=== PATIENT | female | born 1960 | race Caucasian/White ===

== ENCOUNTER 2018-09-06 20:50 | Emergency (ER) | payer BC ==
[~2018-09-06] VITALS: Ht 157.5 cm; Wt 53.6 kg
[2018-09-06] MEDS ORDERED: PANT20TA2 PO (20:57)
[2018-09-06] MEDS ORDERED: LEXA1TAB PO (20:57)
[2018-09-06] MEDS ORDERED: TIZA2CAP PO (22:28)
[2018-09-06] MEDS ORDERED: TRAM50TA2 PO (22:28)
[2018-09-06] MEDS ORDERED: traMADol 50 MG TAB PO ONE (22:30)
[2018-09-06 22:37] VITALS: BP 120/69
--- NOTE | 2018-09-07 08:17 | REP ---
Right humerus two views: There is a nondisplaced fracture at the surgical neck of the humerus. There is no dislocation. No calcifications or foreign bodies. No pleural Electronically Signed by Sudheer Ortega MD 09/07/2018 08:09 A
--- NOTE | 2018-09-07 08:18 | REP ---
Right forearm two view : There is no fracture or dislocation. Mineralization and joint spaces are normal. There are no calcifications or foreign bodies. Impression: Negative right forearm . Electronically Signed by Sudheer Ortega MD 09/07/2018 08:09 A
== END 2018-09-06 22:56 | disposition home or self-care (01) ==
LOC: M ED 20:50
DX: S42.214A Unspecified nondisplaced fracture of surgical neck of right humerus, initial encounter for closed fracture (principal); W00.0XXA Fall on same level due to ice and snow, initial encounter; Y92.330 Ice skating rink (indoor) (outdoor) as the place of occurrence of the external cause; K21.9 Gastro-esophageal reflux disease without esophagitis; Z79.899 Other long term (current) drug therapy